=== PATIENT | male | born 1975 | race Caucasian/White ===

== ENCOUNTER 2021-07-19 10:15 | Emergency (ER) | payer BC ==
--- NOTE | 2021-07-19 11:51 | CT ---
EXAMINATION: Head wo Cont SEX: Male AGE: 45 years CLINICAL HISTORY: 45-year-old hypertensive male complaining of numbness right side. "Subtle focal area of decreased attenuation left frontal lobe" reported on CT (fall and contrecoup injury) exam, September 2008. Scan technique: Volume acquisition of data emergency unenhanced CT scan of the head and brain obtained with patient lying supine on the Siemens multislice scanner [place], [place]. All data archived in the PACS system for storage, reformatting axial/sagittal/coronal planes and study (bone/brain windows). Interpretation: 1. Uniformly thick bony calvarium. No sign of pathologic skeletal lesion, skull fracture, underlying brain contusion or epidural/subdural hematoma. Symmetric clear pneumatization of the paranasal and mastoid sinuses. 2. Generalized atrophy. Mirror-image normal ventricular system. No hydrocephalus. 3. 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 No new infarct or signs of encephalomalacia. No associated edema or mass effect. 4. No supratentorial or posterior fossa mass lesion. Cerebellum and brainstem unremarkable. 5. No sign of acute intracerebral, intraventricular or subarachnoid bleed. CONCLUSION: No acute new intracranial abnormality (2006). ATROPHY. No intracranial mass, hydrocephalus, ischemic infarct or bleed.
[2021-07-19 12:20] LABS: ANION GAP 10.7 mEq/L (7-13); CHLORIDE,CL 105 mmol/L (98-107); SODIUM,NA 138 mmol/L (136-145)
--- NOTE | 2021-07-19 12:34 | EDM.PDOC ---
ED HPI GENERAL MEDICAL PROBLEM - General Chief Complaint: Neuro Symptoms/Deficits Stated Complaint: NUMB RIGHT SIDE SENT BY ZAK LUCIA Time Seen by Provider: 07/19/21 10:45 Source of Information: Reports: Patient, RN, RN Notes Reviewed History Limitations: Reports: No Limitations - History of Present Illness INITIAL COMMENTS - FREE TEXT/NARRATIVE: Patient is a 45-year-old male who presents to ER with complaint of numbness to the outer side of the right arm, the outer right leg, and the right flank area that began about 630 to 7 PM last evening. Patient denies any pain, recent falls or injuries. Patient denies any headache, double vision, blurred vision. Patient denies any weakness in any of the limbs, denies any speech disturbance. Patient states he has a history of hypertension and has not been taking his blood pressure medication for quite some time, several months. Patient states he has had what he described as possibly ablation for SVT. Patient states he has had an adrenal gland removed but is unsure location. Patient denies any diabetes in himself or family history. Also denies any history of stroke in immediate family. Patient described the sensation as a hot feeling when he first noticed it last evening. Also states the sole of the right foot feels "hotter" when he is standing. Onset: Sudden Onset Date: 07/18/21 - Related Data Allergies Allergy/AdvReac Type Severity Reaction Status Date / Time No Known Allergies Allergy Verified 07/19/21 10:33 Home Meds: Home Meds Lisinopril 5 mg PO DAILY 10/26/18 [History] Metoprolol Succinate 100 mg PO DAILY 10/26/18 [History] Past Medical History Cardiovascular History: Reports: High Cholesterol, Hypertension - Past Surgical History Cardiovascular Surgical History: Reports: Other (See Below) Other Cardiovascular Surgeries/Procedures: EP procedure for SVT. Social & Family History - Tobacco Use Tobacco Use Status *Q: Current Every Day Tobacco User Years of Tobacco use: 20 Packs/Tins Daily: 0.7 - Caffeine Use Caffeine Use: Reports: Coffee - Recreational Drug Use Recreational Drug Use: No ED ROS GENERAL - Review of Systems Review Of Systems: Comprehensive ROS is negative, except as noted in HPI. ED EXAM, NEURO - Physical Exam Exam: See Below Exam Limited By: No Limitations General Appearance: Alert, WD/WN, No Apparent Distress Eye Exam: Bilateral Eye: EOMI, Normal Inspection Ears: Normal External Exam, Hearing Grossly Normal Nose: Normal Inspection Throat/Mouth: Normal Inspection, Normal Voice, No Airway Compromise Head Exam: Atraumatic, Normocephalic Neck: Normal Inspection, Supple, Non-Tender, Full Range of Motion Respiratory/Chest: No Respiratory Distress, Lungs Clear, Normal Breath Sounds, No Accessory Muscle Use, Chest Non-Tender Cardiovascular: Normal Peripheral Pulses, Regular Rate, Rhythm, No Edema, No Gallop, No JVD, No Murmur, No Rub GI/Abdominal: Normal Bowel Sounds, Soft, Non-Tender (Male) Exam: Deferred Rectal (Males) Exam: Deferred Neurological: Alert, Normal Mood/Affect, Normal Dorsiflexion, CN II-XII Intact, Normal Plantar Flexion, Normal Gait, Normal Reflexes, No Motor/Sensory Deficits, Oriented x 3, Other (numbness to the outer side of the right arm, outer aspect of right leg, and right side of abdomen/flank area. ) Back Exam: Normal Inspection, Full Range of Motion Extremities: Normal Inspection, Normal Range of Motion, Non-Tender, No Pedal Edema, Normal Capillary Refill Psychiatric: Normal Affect, Normal Mood Skin Exam: Warm, Dry, Intact, Normal Color, No Rash #1 Interpretation EKG Date: 07/19/21 Time: 11:44 Rhythm: NSR Rate (Beats/Min): 84 [place]: Normal P-Wave: Present QRS: Normal ST-T: Normal QT: Normal Comparison: No Change Course - Vital Signs Last Recorded V/S: Last Vital Signs Temp 98.4 F 07/19/21 10:30 Pulse 86 07/19/21 11:55 Resp 20 07/19/21 11:55 BP 174/123 H 07/19/21 11:55 Pulse Ox 98 07/19/21 11:55 - Orders/Labs/Meds Labs: Laboratory Tests 07/19/21 07/19/21 07/19/21 Range/Units 11:45 11:55 11:55 WBC 6.1 (5.0-10.0) 10^3/uL RBC 5.24 (4.6-6.2) 10^6/uL Hgb 16.2 (14.0-18.0) g/dL Hct 47.0 (40.0-54.0) % MCV 89.7 (80-100) fL MCH 30.9 (27.0-34.0) pg MCHC 34.5 (33.0-35.0) g/dL Plt Count 199 (150-450) 10^3/uL Neut % (Auto) 73.9 (42.2-75.2) % Lymph % (Auto) 15.8 L (20.5-50.1) % Armstrong % (Auto) 8.2 H (2-8) % Eos % (Auto) 1.6 (1.0-3.0) % Baso % (Auto) 0.5 (0.0-1.0) % ESR 11 (0-15) mm/hr Sodium 138 (136-145) mmol/L Potassium 3.7 (3.5-5.1) mmol/L Chloride 105 (98-107) mmol/L Carbon Dioxide 26 (21-32) mmol/L Anion Gap 10.7 (7-13) mEq/L BUN 12 (7-18) mg/dL Creatinine 0.84 (0.70-1.30) mg/dL Est Cr Clr Drug Dosing 101.27 mL/min Estimated GFR (MDRD) > 60 BUN/Creatinine Ratio 14.3 (No establ ref range) Glucose 86 (70-99) mg/dL Calcium 8.5 (8.5-10.1) mg/dL Total Bilirubin 0.3 (0.2-1.0) mg/dL AST 9 L (15-37) U/L ALT 21 (16-63) U/L Alkaline Phosphatase 78 (46-116) U/L C-Reactive Protein 0.2 (0.0-0.9) mg/dL Total Protein 6.7 (6.4-8.2) g/dL Albumin 3.3 L (3.4-5.0) g/dL Globulin 3.4 Albumin/Globulin Ratio 0.97 Urine Color Yellow (YELLOW) Urine Appearance Clear (CLEAR) Urine pH 6.5 (5.0-9.0) Ur Specific [place] 1.020 (1.005-1.030) Urine Protein Negative (NEGATIVE) Urine Glucose (UA) Negative (NEGATIVE) Urine Ketones Negative (NEGATIVE) Urine Occult Blood Trace-intact H (NEGATIVE) Urine Nitrite Negative (NEGATIVE) Urine Bilirubin Negative (NEGATIVE) Urine Urobilinogen 0.2 (0.2-1.0) mg/dL Ur Leukocyte Esterase Negative (NEGATIVE) Urine RBC 0-5 (0-5) /HPF Urine WBC Not seen (0-5/HPF) /HPF Ur Epithelial Cells Rare (NOT SEEN) /HPF Urine Bacteria Not seen (0-FEW/HPF) /HPF Meds: Medications Discontinued Medications Generic Name Dose Route Start Last Admin Trade Name Freq PRN Reason Stop Dose Admin Labetalol HCl 20 mg 07/19/21 13:10 07/19/21 13:39 Labetalol 20 Mg/4 Ml Syringe IVPUSH 07/19/21 13:11 20 mg ONETIME ONE Administration - Radiology Interpretation Free Text/Narrative:: Head CT wo contrast: No new acute intracranial abnormality compared to CT of head 2006. Atrophy. No intracranial mass, hydrocephalus, ischemic infarct or bleed. See rad report Departure - Departure Time of Disposition: 14:28 Disposition: Home, Self-Care 01 Condition: Good Clinical Impression: Numbness - Discharge Information *PRESCRIPTION DRUG MONITORING PROGRAM REVIEWED*: No *COPY OF PRESCRIPTION DRUG MONITORING REPORT IN PATIENT RENZO: No Referrals: PCP,None [Primary Care Provider] - Forms: ED Department Discharge Additional Instructions: Restart blood pressure medications Metoprolol succinate 50 mg orally once daily Lisinopril 5 mg orally once daily Follow-up with your primary care provider next week for further evaluation Sepsis Event Note (ED) - Focused Exam Vital Signs: Vital Signs Temp Pulse Resp BP Pulse Ox 07/19/21 11:55 86 20 174/123 H 98 07/19/21 10:30 98.4 F 96 18 189/124 H 99
[2021-07-19] MEDS ORDERED: Labetalol 20 MG/4 ML Syringe IVPUSH ONE (13:10)
== END 2021-07-19 14:45 | disposition home or self-care (01) ==
LOC: DL.ED 10:15
DX: R20.0 Anesthesia of skin (principal); I10 Essential (primary) hypertension; Z72.0 Tobacco use; Z79.899 Other long term (current) drug therapy
CPT/HCPCS: 36415; 70450; 80053; 81001; 85025; 85651; 86140; 93005; 96374; 99284; J3490